=== PATIENT | female | born 1945 | race Caucasian/White ===

== ENCOUNTER 2018-06-27 12:37 | Emergency (ER) | payer MEDICARE, OTHER, SELFPAY ==
[2018-06-27 12:42] VITALS: BP 130/66; PULSE 88; RESP 18; TEMP 37.8; O2SAT 94
--- NOTE | 2018-06-27 12:55 | DI.RAD_ITS ---
SYMPTOM/DIAGNOSIS: LT SIDED PAIN AFTER FALL, COPD PA AND LATERAL CHEST, AND LEFT RIBS: Comparison is made with 29 December 2017. Heart size is normal. The lungs are again noted to be hyperinflated. No pneumothorax, infiltrate or effusion seen. There are stable mid thoracic as well as lower thoracic compression fractures. There are slight deformities of the anterior ribs likely indicating old fractures. No definite acute rib fracture is seen. IMPRESSION: No acute abnormality.
--- NOTE | 2018-06-27 12:57 | W.ED.GENAD ---
Discharge Plan Disposition Patient Disposition: HOME Condition: Improving Discharge Details Chief Complaint: Chest/Rib Clinical Impression: Contusion of rib Primary Care Provider: Lena Velez V ED Provider: Sukh Agustin Home Meds and New Rx's Prescriptions: Continue mirtazapine [Remeron] 15 MG tablet 30 mg PO HS RF: 0 trazodone 50 MG tablet 100 mg PO .QHS RF: 0 melatonin 3 MG tablet 3 mg PO DAILY RF: 0 aspirin [[place] Aspirin] 81 MG tablet,delayed release (DR/EC) 1 tab PO DAILY RF: 0 polyethylene glycol 3350 17 GM powder in packet 17 gm PO DAILY PRN PRN (Reason: Constipation) RF: 0 Discharge Instructions Instructions: Rib Contusion (ED) Additional Instructions: Home to rest today. May apply ice to areas of discomfort if needed. Continue your regular medications. Return if you develop shortness of breath, persistent rib pain, or any other acute concerns Medical Decision Making 72-year-old female presents from home with her caregiver. She stumbled last night and struck a [place] tree with the left side of her body. She did not strike her head or have a loss of consciousness. In the interim she developed a minor bruise to the left hip and intermittent episodes of aching left chest pain that is worse with cough. She has a chronic cough. No fever. No air hunger. No hypoxia. The pain is episodic and worse with chronic cough. Differential diagnosis includes contusion versus underlying fracture. Patient referred for x-ray which does not reveal underlying fracture. She certainly may have contusion Will treat conservatively. SHe has minimal to no persistent pain. She has a good home environment/caregiver. Return and followup precautions discussed with caregiver prior to discharge. HPI General Mode of arrival: ambulatory. Date/Time Provider Initiated Documentation: 06/27/18 12:41. Limitations to Documentation: no limitations. Information obtained by: patient and family (The patient's caregiver with whom she lives). History of Present Illness 72 year old F presents to the emergency department with the chief complaint of Fall last night and left-sided pain with coughing, described as moderate, Quality is described as aching, and is localized to the chest and left. Patient reports no radiation. Patient started experiencing this hour(s) and it has been intermittent and now resolved. No relieving factors improve symptom(s), No exacerbating factors reported . Patient notes no other symptoms.. Related Data Home Medications Medication Instructions Recorded Confirmed mirtazapine [Remeron] 30 mg PO HS 03/20/14 06/27/18 aspirin [[place] Aspirin] 1 tab PO DAILY 08/30/17 06/27/18 melatonin 3 mg PO DAILY 08/30/17 06/27/18 trazodone 100 mg PO .QHS 08/30/17 06/27/18 polyethylene glycol 3350 17 gm PO DAILY PRN PRN packet 12/31/17 06/27/18 Previous Rx's Medication Instructions Recorded polyethylene glycol 3350 17 gm PO DAILY PRN PRN packet 12/31/17 Allergies Allergy/AdvReac Type Severity Reaction Status Date / Time ampicillin Allergy Mild Hives Unverified 06/27/18 13:09 General Stated Complaint: Chest/Rib HENRY: 4 Review of Systems Review of Systems For systems reviewed and otherwise negative PFSH Social History Smoking/Tobacco Use Status: Current every day Social History Smoking/Tobacco Use Status: Former Tobacco Use Exam Narrative Exam Narrative: GEN: awake, alert, oriented 3. Pleasant, well groomed, interactive. HEAD: Normocephalic, atraumatic ENT: Mucous membranes moist, oropharynx unremarkable, External ear exam unremarkable EYES: PERRL, EOMI NECK: Full ROM, no KO, no menigismus CHEST/RESP: Left lateral chest wall, mid axillary line, tender to palpation, clear to auscultation bilateral, no wheeze/rhonchi/rales CARDIOVASCULAR: RRR, no murmur, rub james. 2+ Rad pulse bilateral ABDOMEN: Soft, nontender, no mass. +Bowel sounds EXT: Full ROM, no edema, no rash. Ecchymosis left anterior superior iliac spine. No pain with movement of the lower extremity/hip Neuro: Grossly normal neurologic exam, conversant, interactive. Psych: Speech fluent, thoughts congruent, affect normal Course Vital Signs Temperature 37.8 C H 06/27/18 12:42 Pulse 88 06/27/18 12:42 Respiratory Rate 18 06/27/18 12:42 Blood Pressure 130/66 06/27/18 12:42 Pulse Oximetry 94 L 06/27/18 12:42 Temperature 37.8 C H 06/27/18 12:42 Temperature Source Temporal Artery Scan 06/27/18 12:42 Pulse 88 06/27/18 12:42 Respiratory Rate 18 06/27/18 12:42 Blood Pressure 130/66 06/27/18 12:42 Blood Pressure Position Sitting 06/27/18 12:42 Pulse Oximetry 94 L 06/27/18 12:42 Oxygen Delivery Method Room Air 06/27/18 12:42 Oxygen Flow Rate 0 06/27/18 12:42 Pain Level 0 06/27/18 12:42
--- NOTE | 2018-06-27 14:24 | DI.VRAD_ITS ---
EXAM: XR Left Ribs, 2 Views EXAM DATE/TIME: 06/27/2018 12:56 PM CLINICAL HISTORY: 72 years old, female; Pain; Chest wall pain; Left; Patient HX: L sided pain after fall TECHNIQUE: XR Left ribs 2 views. COMPARISON: CR CHEST 2 VIEWS PA,LAT 12/29/2017 10:14 AM FINDINGS: Bones/joints: Normal. Soft tissues: Normal. IMPRESSION: No acute findings. EXAM: XR Chest, 2 Views EXAM DATE/TIME: 06/27/2018 12:56 PM CLINICAL HISTORY: 72 years old, female; Pain; Chest wall pain; Left; Patient HX: L sided pain after fall TECHNIQUE: XR of the chest, 2 views. COMPARISON: CR CHEST 2 VIEWS PA,LAT 12/29/2017 10:14 AM FINDINGS: Lungs: The lungs appear slightly hyperaerated and hyperlucent. Pleural space: Unremarkable. No pleural effusion. No pneumothorax. Heart/Mediastinum: Unremarkable. No cardiomegaly. Bones/joints: There are mild mid and lower thoracic compression deformities, unchanged from prior exam. Other findings: Bone mineralization appears decreased. IMPRESSION: No definite acute posttraumatic abnormality. COMMENT: Preliminary interpretation is based on receipt of 5 image(s). A final report will be issued subsequently. Dictated and Authenticated by: Dasia Carlisle MD. Ordering:DAVON FUNEZ MD
== END 2018-06-27 14:31 | disposition home or self-care (01) ==
LOC: ER 14:37
PROVIDERS: Emergency Provider Emergency Medicine; PCP Family Medicine
DX: S20.222A Contusion of left back wall of thorax, initial encounter (principal); W01.198A Fall on same level from slipping, tripping and stumbling with subsequent striking against other object, initial encounter
CPT/HCPCS: 99284; 71046; 71100

== ENCOUNTER 2018-11-27 16:01 | Emergency (ER) | payer MEDICARE, MEDICAID, SELFPAY ==
[2018-11-27 16:06] VITALS: BP 146/85; PULSE 100; RESP 14; TEMP 36.8; O2SAT 95
--- NOTE | 2018-11-27 16:09 | W.ED.GENAD ---
Discharge Plan Disposition Patient Disposition: HOME Condition: Fair Discharge Details Chief Complaint: Cellulitis Clinical Impression: Cellulitis, Maceration of skin Primary Care Provider: Lena Velez V ED Provider: Candi Rick Home Meds and New Rx's Prescriptions: New clindamycin HCl 150 mg capsule 450 mg PO TID Qty: 63 RF: 0 Continued mirtazapine [Remeron] 15 MG tablet 30 mg PO HS RF: 0 multivitamin Tablet 1 tab PO DAILY RF: 0 risperidone [Risperdal] 0.25 mg Tablet 0.25 mg PO BID RF: 0 trazodone 50 MG tablet 100 mg PO .QHS RF: 0 melatonin 3 MG tablet 3 mg PO DAILY RF: 0 aspirin [[place]ates Aspirin] 81 MG tablet,delayed release (DR/EC) 1 tab PO DAILY RF: 0 polyethylene glycol 3350 17 GM powder in packet 17 gm PO DAILY PRN PRN (Reason: Constipation) RF: 0 Discharge Instructions Instructions: Cellulitis (ED) Additional Instructions: Encourage hydration. Try to air right foot as much as possible, dry well after showers. Take Clindamycin as prescribed. Even if symptoms improve, please take entire course. When in shoes, have wound covered to protect from rubbing, take dressing off when shoes are off. Please contact pediatrist Thursday to schedule follow up appointment. Keep upcoming appointment with PCP. If Rosita develops fevers/chills, increased pain, spreading of the redness or other new/worsening symptoms please seek care urgently once again. Referrals: Lena Velez MD [Primary Care Provider] - Duane Butterfield DPM [[facility] STAFF PHYSICIAN] - Discharge Data Discharge Date/Time-TO BE ENTERED AT DEPARTURE: 11/27/18 16:39 Medical Decision Making Patient 73 year old female brought in by home care provider who has lived with her for the past year, presenting for eval of right foot. Noted area of erythema on dorsum of the foot. Area of warmth and redness dorsal distal foot. Open area between 4&5 digits that appears to be from macerated tissue is where erythema seems to be stemming from. She has a different isolated area of macerated tissue that appears to have opened centrally with no signs of infection. I advised that she will need to allow this to dry. This is difficult with the patients dementia and unwillingness to go without shoes. The care provider and myself discussed methods that may help with this. Encouraged frequent sock changes. Nursing staff applied dressing to help prevent rubbing. Will treat cellulitis with antibiotics. Patient allergic to ampicillin, unclear reactions, for this reason will give Clindamycin. Advised f/u with wire photo operator, have asked career resource specialist to help with this. Discussed that with the appearance of her nails, she should be seen regularly. Area of erythema was marked. Advised probiotic while on Clindamycin. Encouraged hdyration. Given strict return precautions. She already has appointment with her primary care this week. All questions and concerns were addressed, she is in agreement with this plan. HPI General Mode of arrival: ambulatory. Date/Time Provider Initiated Documentation: 11/27/18 16:08. Limitations to Documentation: altered mental status (patient has dementia). Information obtained by: patient, family (brought in by school child care attendant) and RN notes reviewed. HPI Narrative: Patient is a 73 year old female with history of dementia presenting today, brought in by her school child care attendant, for evaluation of her right foot. in home caregiver reports that patient refuses to remove her shoes, even for sleeping, a symptom she has had >1 year associated with her dementia. States that her foot looked normal 2 days ago at the time of her last shower. However, noted erythema, warmth and break down of skin today. Concerned for infection. No fevers/chills. No known trauma. Related Data Home Medications Medication Instructions Recorded Confirmed mirtazapine [Remeron] 30 mg PO HS 03/20/14 11/27/18 aspirin [[place] Aspirin] 1 tab PO DAILY 08/30/17 11/27/18 melatonin 3 mg PO DAILY 08/30/17 11/27/18 trazodone 100 mg PO .QHS 08/30/17 11/27/18 polyethylene glycol 3350 17 gm PO DAILY PRN PRN packet 12/31/17 11/27/18 clindamycin HCl 450 mg PO TID #63 cap 11/27/18 multivitamin 1 tab PO DAILY 11/27/18 11/27/18 risperidone [Risperdal] 0.25 mg PO BID 11/27/18 11/27/18 Previous Rx's Medication Instructions Recorded polyethylene glycol 3350 17 gm PO DAILY PRN PRN packet 12/31/17 clindamycin HCl 450 mg PO TID #63 cap 11/27/18 Allergies Allergy/AdvReac Type Severity Reaction Status Date / Time ampicillin Allergy Mild Hives Unverified 11/27/18 16:06 General HENRY: 4 Review of Systems Constitutional Reports as per HPI, Denies chills, Denies fever(s), Denies headache(s) and Denies weakness ENT Denies headache(s) Cardiovascular Reports as per HPI Respiratory Reports as per HPI and Denies cough Musculoskeletal Reports as per HPI and Denies tingling Integumentary/Breasts Reports as per HPI, Denies skin pain, Reports sores and Reports wounds Neurologic Reports as per HPI, Denies headache(s), Denies tingling, Denies paresthesias and Denies weakness [facility] Social History Smoking/Tobacco Use Status: Former Tobacco Use Alcohol Intake: former Drug use: Never Substance use type: does not use Do you feel safe in your relationship?: Yes Exam Const General: cooperative, healthy appearing, comfortable, no acute distress, well developed and well groomed Nutritional Appearance: average body habitus and well nourished Orientation: alert and awake Resp Effort & Inspection: normal respiratory effort, able to speak in complete sentences and no respiratory distress Auscultation: clear to auscultation bilaterally Cardio Rate: regular rate Rhythm: regular rhythm Heart Sounds: S1 normal and S2 normal Skin General skin exam: no crusts, skin not dry, erythema (dorsal right foot), no fluctuance and other (macerated area between digits, on sole of foot) Neuro General: alert and awake Cognition: normal cognition Speech: speech normal Gait: normal gait Motor: muscle tone normal throughout Sensory Exam: no sensory deficits noted Extrem Right lower extremity: full ROM, normal capillary refill, no joint enlargement, ankle Details: normal to inspection and foot Details: normal capillary refill, toes with normal ROM, vascular exam Details: dorsalis pedis pulse present, posterior tibial pulse present and normal capillary refill, motor-sensory exam Details: light-touch normal and other (macerated tissue); no tenderness, no crepitus and no puncture wound; abnormal to inspection (skin changes as above), no cyanosis and no edema Ankle/foot/toe images: 1. macerated tissue with opening 2. area of erythema, stemming from open area from macerated tissue between 4&5 digits Psych Appearance: grossly normal and well kempt Mental Status: mental status grossly normal Speech and Movement: speech and movement normal
--- NOTE | 2018-11-27 16:29 | ED.GENADUL_ITS ---
Discharge Plan Disposition Patient Disposition: HOME Condition: Fair Discharge Details Chief Complaint: Cellulitis Clinical Impression: Cellulitis, Maceration of skin Primary Care Provider: Lena Velez V ED Provider: Candi Rick Home Meds and New Rx's Prescriptions: New clindamycin HCl 150 mg capsule 450 mg PO TID Qty: 63 RF: 0 Continued mirtazapine [Remeron] 15 MG tablet 30 mg PO HS RF: 0 multivitamin Tablet 1 tab PO DAILY RF: 0 risperidone [Risperdal] 0.25 mg Tablet 0.25 mg PO BID RF: 0 trazodone 50 MG tablet 100 mg PO .QHS RF: 0 melatonin 3 MG tablet 3 mg PO DAILY RF: 0 aspirin [[place] Aspirin] 81 MG tablet,delayed release (DR/EC) 1 tab PO DAILY RF: 0 polyethylene glycol 3350 17 GM powder in packet 17 gm PO DAILY PRN PRN (Reason: Constipation) RF: 0 Discharge Instructions Instructions: Cellulitis (ED) Additional Instructions: Encourage hydration. Try to air right foot as much as possible, dry well after showers. Take Clindamycin as prescribed. Even if symptoms improve, please take entire course. When in shoes, have wound covered to protect from rubbing, take dressing off when shoes are off. Please contact pediatrist Thursday to schedule follow up appointment. Keep upcoming appointment with PCP. If Rosita develops fevers/chills, increased pain, spreading of the redness or other new/worsening symptoms please seek care urgently once again. Referrals: Lena Velez MD [Primary Care Provider] - Duane Butterfield DPM [[facility] STAFF PHYSICIAN] - Discharge Data Discharge Date/Time-TO BE ENTERED AT DEPARTURE: 11/27/18 16:39 Medical Decision Making Patient 73 year old female brought in by home care provider who has lived with her for the past year, presenting for eval of right foot. Noted area of erythema on dorsum of the foot. Area of warmth and redness dorsal distal foot. Open area between 4&5 digits that appears to be from macerated tissue is where erythema seems to be stemming from. She has a different isolated area of macerated tissue that appears to have opened centrally with no signs of infection. I advised that she will need to allow this to dry. This is difficult with the patients dementia and unwillingness to go without shoes. The care provider and myself discussed methods that may help with this. Encouraged frequent sock changes. Nursing staff applied dressing to help prevent rubbing. Will treat cellulitis with antibiotics. Patient allergic to ampicillin, unclear reactions, for this reason will give Clindamycin. Advised f/u with master control engineer, have asked respiratory care instructor to help with this. Discussed that with the appearance of her nails, she should be seen regularly. Area of erythema was marked. Advised probiotic while on C lindamycin. Encouraged hdyration. Given strict return precautions. She already has appointment with her primary care this week. All questions and concerns were addressed, she is in agreement with this plan. HPI General Mode of arrival: ambulatory . Date/Time Provider Initiated Documentation: 11/27/18 16:08 . Limitations to Documentation: altered mental status (patient has dementia) . Information obtained by: patient, family (brought in by physician primary care sports medicine) and RN notes reviewed . HPI Narrative: Patient is a 73 year old female with history of dementia presenting today, brought in by her physician primary care sports medicine, for evaluation of her right foot. morning caregiver reports that patient refuses to remove her shoes, even for sleeping, a symptom she has had >1 year associated with her dementia. States that her foot looked normal 2 days ago at the time of her last shower. However, noted erythema, warmth and break down of skin today. Concerned for infection. No fevers/chills. No known trauma. Related Data Home Medications Medication Instructions Recorded Confirmed mirtazapine [Remeron] 30 mg PO HS 03/20/14 11/27/18 aspirin [[place] Aspirin] 1 tab PO DAILY 08/30/17 11/27/18 melatonin 3 mg PO DAILY 08/30/17 11/27/18 trazodone 100 mg PO .QHS 08/30/17 11/27/18 polyethylene glycol 3350 17 gm PO DAILY PRN PRN packet 12/31/17 11/27/18 clindamycin HCl 450 mg PO TID #63 cap 11/27/18 multivitamin 1 tab PO DAILY 11/27/18 11/27/18 risperidone [Risperdal] 0.25 mg PO BID 11/27/18 11/27/18 Previous Rx's Medication Instructions Recorded polyethylene glycol 3350 17 gm PO DAILY PRN PRN packet 12/31/17 clindamycin HCl 450 mg PO TID #63 cap 11/27/18 Allergies Allergy/AdvReac Type Severity Reaction Status Date / Time ampicillin Allergy Mild Hives Unverified 11/27/18 16:06 General HENRY: 4 Review of Systems Constitutional Reports as per HPI, Denies chills, Denies fever(s), Denies headache(s) and Denies weakness ENT Denies headache(s) Cardiovascular Reports as per HPI Respiratory Reports as per HPI and Denies cough Musculoskeletal Reports as per HPI and Denies tingling Integumentary/Breasts Reports as per HPI, Denies skin pain, Reports sores and Reports wounds Neurologic Reports as per HPI, Denies headache(s), Denies tingling, Denies paresthesias and Denies weakness [facility] Social History Smoking/Tobacco Use Status: Former Tobacco Use Alcohol Intake: former Drug use: Never Substance use type: does not use Do you feel safe in your relationship?: Yes Exam Const General: cooperative, healthy appearing, comfortable, no acute distress, well developed and well groomed Nutritional Appearance: average body habitus and well nourished Orientation: alert and awake Resp Effort & Inspection: normal respiratory effort, able to speak in complete sentences and no respiratory distress Auscultation: clear to auscultation bilaterally Cardio Rate: regular rate Rhythm: regular rhythm Heart Sounds: S1 normal and S2 normal Skin General skin exam: no crusts, skin not dry, erythema (dorsal right foot), no fluctuance and other (macerated area between digits, on sole of foot) Neuro General: alert and awake Cognition: normal cognition Speech: speech normal Gait: normal gait Motor: muscle tone normal throughout Sensory Exam: no sensory deficits noted Extrem Right lower extremity: full ROM, normal capillary refill, no joint enlargement, ankle Details: normal to inspection and foot Details: normal capillary refill, toes with normal ROM, vascular exam Details: dorsalis pedis pulse present, posterior tibial pulse present and normal capillary refill, motor-sensory exam Details: light-touch normal and other (macerated tissue); no tenderness, no c repitus and no puncture wound; abnormal to inspection (skin changes as above), no cyanosis and no edema Ankle/foot/toe images: 1. macerated tissue with opening 2. area of erythema, stemming from open area from macerated tissue between 4&5 digits Psych Appearance: grossly normal and well kempt Mental Status: mental status grossly normal Speech and Movement: speech and movement normal
--- NOTE | 2018-11-29 08:59 | PDOC.ERCMPRO ---
Care Management Progress Note 11/29-DORINA Christopher requested assistance with a podiatry f/u in 2 weeks for macerated tissue, cellulitis sole of foot. Referral faxed to Dr. Butterfield's office this am.
== END 2018-11-27 16:39 | disposition home or self-care (01) ==
LOC: ER 16:40
PROVIDERS: Emergency Provider Physician Assistant; PCP Family Medicine
DX: L03.115 Cellulitis of right lower limb (principal); R23.8 Other skin changes
CPT/HCPCS: 99283

== ENCOUNTER 2019-06-21 15:18 | Outpatient (REF) | payer MEDICARE, MEDICAID, SELFPAY | END 2019-06-21 15:38 | LOC: LBN 15:18 | PROVIDERS: PCP Family Medicine; Visit Provider Podiatrist | DX: L97.519 Non-pressure chronic ulcer of other part of right foot with unspecified severity (principal); M86.671 Other chronic osteomyelitis, right ankle and foot | CPT/HCPCS: 87077; 87070; 87186; 87205 ==

== ENCOUNTER 2019-08-31 09:06 | Emergency (ER) | payer MEDICARE, MEDICAID, SELFPAY ==
[2019-08-31 09:14] VITALS: BP 103/56; PULSE 123; RESP 16; TEMP 36.6; O2SAT 96
--- NOTE | 2019-08-31 09:22 | W.ED.GENAD ---
Discharge Plan Disposition Patient Disposition: HOME Condition: Stable Discharge Details Chief Complaint: Orthopedic Clinical Impression: Closed fracture distal radius and ulna Primary Care Provider: Lena Velez V ED Provider: Kimmy Lisa Home Meds and New Rx's Prescriptions: New acetaminophen-codeine [Tylenol-Codeine #3] 300-30 mg tablet 1 tab PO BID PRN (Reason: pain) Qty: 6 RF: 0 Continued guaifenesin [Mucinex] 600 mg tablet extended release 12hr 600 mg PO Q12H PRN (Reason: cough, mucous) RF: 0 paroxetine HCl 20 mg tablet 10 mg PO DAILY RF: 0 trazodone 100 mg tablet 100 mg PO QHS Qty: 90 RF: 0 mirtazapine [Remeron] 15 MG tablet 30 mg PO HS RF: 0 risperidone [Risperdal] 0.25 mg tablet 0.5 mg PO BID RF: 0 melatonin 3 MG tablet 3 mg PO DAILY RF: 0 Discharge Instructions Instructions: Wrist Fracture in Adults (ED), Splint Care (ED) Additional Instructions: Follow-up with orthopedic clinic. Phone number is [phone] Dr. Kim is aware of you and wants to see you in clinic early next week. If fingers become cold blue numb or tingly loosen the Trevon wrap but do not take off the splint until seen by Ortho. For any excruciating pain or continued problems with circulation return to the ED as soon as possible. Take medications as directed. Keep extremity elevated you may apply ice pack to the exterior of the splint To reduce swelling. Medications are best taken with food. They may make her sleepy and dizzy so be careful with walking. Referrals: Lena Velez MD [Primary Care Provider] - Medical Decision Making 74-year-old female presents after trip and fall on outstretched arms with left wrist deformity and tenderness. Tylenol with codeine ordered an x-ray. Ice pack in place. FINDINGS: There is a comminuted intra-articular fracture of the distal radius which shows impaction and dorsal angulation as well as posterior displacement. There is also comminuted fracture of the ulnar styloid. The carpal bones show mild degenerative changes but no evidence of fracture. IMPRESSION: Comminuted distal radial and ulnar fractures. Ordered By: Kimmy Lisa CC: Dictated By: Ana Barrientos M.D. 08/31/19953 <Electronically signed by Ana Barrientos M.D. in OV> 08/31/19953 1014: Caregiver is concerned that patient will not tolerate Ortho splint due to dementia and will pick at it and try to take it off. She requests cast placement. Page placed to Ortho on-call Dr. Kim. 1018: Spoke with Dr. Kim with ortho, he recommends reduction, Ortho glass, and Koban. He will see her in office next week. Will do hematoma block. 1050: Approximately 8 mL of 1% lidocaine injected dorsally for hematoma block. Needle introduced aspirated negative for blood and injected lidocaine. Patient tolerated well. Manual manipulation performed with traction and reduction of left wrist fracture. Patient placed in a reverse sugar tong splint with Trevon wraps. Circulation sensation and movement intact post splint application. Post reduction x-ray ordered. 1106: Spoke with Ortho on-call Dr. Kim who viewed post reduction x-ray he says it is acceptable radius and ulna are somewhat better aligned. He states he will see her in the office next week. Patient placed in sling command wrapped around Ortho-Glass splint. Instructed caregiver on home care to loosen Trevon wraps if any circulation problems or cold blue numb or tingling fingers. Instructed to return for any severe pain not relieved by medications or any concerns or if the splint gets wet. Instructed to follow-up with Ortho clinic early next week with Dr. Kim, verbalized understanding. HPI General Mode of arrival: ambulatory. Date/Time Provider Initiated Documentation: 08/31/19 09:19. Limitations to Documentation: altered mental status (Hx of dementia). Information obtained by: family (caregiver Rosalva). HPI Narrative: 74-year-old female presents with caregiver who reports a trip and fall at around 8 or 830 this morning. She tripped over a nightstand landing on outstretched arms. Here with left wrist pain and deformity. Swelling noted to the dorsal wrist. Radial pulses intact cap refill less than 3 seconds. Patient has a history of dementia. Related Data Home Medications Medication Instructions Recorded Confirmed mirtazapine [Remeron] 30 mg PO HS 03/20/14 08/31/19 melatonin 3 mg PO DAILY 08/30/17 08/31/19 guaifenesin 600 mg tablet, 600 mg PO Q12H PRN 03/22/19 08/31/19 extended release 12 hr paroxetine HCl 20 mg tablet 10 mg PO DAILY 03/22/19 08/31/19 risperidone 0.25 mg tablet 0.5 mg PO BID tab 03/22/19 08/31/19 trazodone 100 mg tablet 100 mg PO QHS #90 tab 06/28/19 08/31/19 acetaminophen-codeine 1 tab PO BID PRN #6 tab 08/31/19 [Tylenol-Codeine #3] Previous Rx's Medication Instructions Recorded trazodone 100 mg tablet 100 mg PO QHS #90 tab 06/28/19 acetaminophen-codeine 1 tab PO BID PRN #6 tab 08/31/19 [Tylenol-Codeine #3] Allergies Allergy/AdvReac Type Severity Reaction Status Date / Time ampicillin Allergy Mild Hives Unverified 08/31/19 09:17 clindamycin Allergy Unverified 08/31/19 09:17 General Stated Complaint: Orthopedic HENYR: 4 Review of Systems Narrative: Constitutional: Negative for weight loss, alert and oriented, well groomed, normal body habitus, appears comfortable. HEENT: Denies headaches, blurry vision, nasal discharge, sore throat, trouble swallowing. Chest: Denies chest pain, palpitations, irregular rhythm, hypertension. Respiratory: Denies Shortness of breath, cough, hemoptysis. GI: Denies abdominal pain, nausea, vomiting, diarrhea, constipation. : Denies dysuria, hematuria, flank pain, rectal bleeding. Neuro: Denies dizziness, blurry vision, weakness, syncope, headache or facial numbness. Hematologic: Denies easy bruising, intolerance to heat or cold, hair loss. Extremities: Left upper extremity wrist swollen, positive deformity, increased tenderness. 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) Anxiety (Chronic) Ataxia following cerebral infarction (Acute) Cellulitis (Acute) Community acquired pneumonia (Acute) COPD (chronic obstructive pulmonary disease) (Chronic) Dementia (Chronic) Depression (Chronic) Detached retina (Acute) DNI (do not intubate) (Acute) DNR (do not resuscitate) (Acute) Dysuria (Acute) Echolalia (Acute) Elevated cancer antigen 125 (CA-125) (Acute) Encounter for hospice care discussion (Acute) Fecal incontinence (Acute) History of tobacco use (Acute) Hyperlipidemia (Acute) Hypertension (Chronic) Incontinence (Acute) Ischemic stroke (Acute) Onychomycosis (Acute) Osteoporosis (Chronic) Peripheral neuropathy (Acute) Unintentional weight loss (Acute) Urinary incontinence (Acute) Vascular dementia (Acute) Surgical History History of total abdominal hysterectomy (Acute) Family History Daughter No problems noted. Daughter No problems noted. Grandson No problems noted. Grandson No problems noted. Grandson No problems noted. Social History Smoking/Tobacco Use Status: Former Tobacco Use Tobacco: How many years used: 54 Second Hand Exposure: No Alcohol Intake: former Drug use: Never Substance use type: does not use Caregiver/Support person: Yes Household members: other Details: lives with director of logisticsRosalva Housing: house Number of Children: 2 Communication Needs: Hard of Hearing Education Level: college Do you need help understanding health information?: Always current occupation: retired RN from [employer] Sexually active: No What is your relationship status?: How often do you talk on the phone with friends or family?: never How often do you get together with friends or relatives?: never Panel score (0-1 are the most socially isolated patients): 0 What type of physical activity do you participate in: none and sedentary lifestyle Special camron needs: No Agree to transfusion: No Seatbelt use: always Drive intox or ride w/intox route delivery service driver: No Water heater temp set <120 deg: Yes Working smoke detector in home: Yes Fire extinguisher in home: Yes Do you feel safe at home: Yes Do you feel safe in your relationship?: Yes Additional Social history: Lives with Rosalva in [facility]. Was in different one previously and didn't do well. Daughter Annette is her DPOA and guardian. Rosita's dementia is alcohol related. Drank heavily for many years. Also vascular. Now on [facility]. Money ran out. Goes to [employer] 4 days per week. Loves where she lives now. Health has improved. Exam Narrative Exam Narrative: Constitutional: Awake, confused at normal baseline per caregiver appears stated age. Normal body habitus. Head: Normocephalic, no trauma. Eyes: Pupils PERRLA, Red reflex noted, EOM's intact. Eyelids symmetrical withour lesions, discharge, or swelling. ENT: Bilateral TM's WNL, External ear normal to inspection, no mastoid TTP, swelling, or erythema, Nasal turbinates WNL, no nasal discharge. Normal dentition, Posterior pharynx WNL, no exudate. Chest: RRR, Normal S1, S2, distal pulses intact. Resp: Lungs clear to auscultation bilaterally, no wheezes, rales, or rhonchi. Musculoskeletal: Normal gait, 5/5 strength to all four extremities. Left wrist has dorsal swelling, contusion and deformity. Radial pulses intact. Skin: No suspicious rashes or lesions. Capillary refill ?2 sec. Neurologic: Cranial nerves II-XII intact. Alert and oriented x 3. DTR's intact. Hematologic/Lymphatic: No ecchymosis, no lymphadenopathy. Course Vital Signs Vital signs: Vital Signs Temperature 36.6 C 08/31/19 09:14 Pulse 123 H 08/31/19 09:14 Respiratory Rate 16 08/31/19 09:14 Blood Pressure 103/56 L 08/31/19 09:14 Pulse Oximetry 96 08/31/19 09:14 Temperature 36.6 C 08/31/19 09:14 Temperature Source Skin 08/31/19 09:14 Pulse 123 H 08/31/19 09:14 Respiratory Rate 16 08/31/19 09:14 Respiratory Effort Non-Labored 08/31/19 09:14 Blood Pressure 103/56 L 08/31/19 09:14 Blood Pressure Position Sitting 08/31/19 09:14 Pulse Oximetry 96 08/31/19 09:14 Oxygen Delivery Method Room Air 08/31/19 09:14 Oxygen Flow Rate 0 08/31/19 09:14 Pain Level 8 08/31/19 09:14 Procedures Orthopedic Fracture Reduction Fracture #1: Time Out Performed: Yes Side: left Fracture Reduction Location: radius and ulna Analgesia: hematoma block Technique: direct manipulation Post-reduction neuro exam: intact Post-reduction vascular exam: intact Splint Applied: Yes Patient Tolerated Procedure: well Orthopedic Splinting/Casting Injury #1: Side: left Upper Extremity Injury Location: wrist Upper Extremity Immobilizer: sling/shoulder immobilizer and sugartong splint (Reverse sugar tong)
--- NOTE | 2019-08-31 09:42 | DI.RAD_ITS ---
EXAM: XR WRIST LT COMPLETE INDICATION: Fall, deformity. COMPARISON: No exams were available for comparison TECHNIQUE: 2D digital imaging was performed. FINDINGS: There is a comminuted intra-articular fracture of the distal radius which shows impaction and dorsal angulation as well as posterior displacement. There is also comminuted fracture of the ulnar styloid . The carpal bones show mild degenerative changes but no evidence of fracture. IMPRESSION: Comminuted distal radial and ulnar fractures.
--- NOTE | 2019-08-31 10:56 | DI.RAD_ITS ---
EXAM: XR WRIST LT LIMITED INDICATION: Post reduction. COMPARISON: XR WRIST LT COMPLETE from 08/31/2019 TECHNIQUE: 2D digital imaging was performed. FINDINGS: A cast is in place. There has been improvement in the alignment of the distal radial fracture. The u lnar styloid fracture is unchanged.
== END 2019-08-31 11:27 | disposition home or self-care (01) ==
PROVIDERS: Emergency Provider Registered Nurse Emergency; PCP Family Medicine
DX: S52.572A Other intraarticular fracture of lower end of left radius, initial encounter for closed fracture (principal); S52.612A Displaced fracture of left ulna styloid process, initial encounter for closed fracture; W22.03XA Walked into furniture, initial encounter; F10.27 Alcohol dependence with alcohol-induced persisting dementia; I10 Essential (primary) hypertension; J44.9 Chronic obstructive pulmonary disease, unspecified; Z87.891 Personal history of nicotine dependence
CPT/HCPCS: 99283; 25605; 73100; 73110; 99282; L3650

== ENCOUNTER 2019-09-07 15:00 | Outpatient (CLI) | payer MEDICARE, MEDICAID, SELFPAY ==
--- NOTE | 2019-09-07 13:00 | DI.RAD_ITS ---
EXAM: XR WRIST LT LIMITED CLINICAL HISTORY: FOLLOW UP. TECHNIQUE: 2D digital imaging was performed. COMPARISON: XR WRIST LT LIMITED from 08/31/2019 XR WRIST LT COMPLETE from 08/31/2019 FINDINGS: BONES: There has been no change in alignment of the fractures involving the distal radius and ulna. There is stable displacement of the distal radial fracture. Patient's wrist is in a cast. JOINTS: The carpal bones are normally aligned. SOFT TISSUE: Normal. IMPRESSION: Stable distal radial and ulnar fractures.
== END 2019-09-07 15:20 ==
PROVIDERS: PCP Family Medicine; Referring Provider Family Medicine; Visit Provider Student in an Organized Health Care Education/Training Program
DX: S52.502A Unspecified fracture of the lower end of left radius, initial encounter for closed fracture (principal); S52.602A Unspecified fracture of lower end of left ulna, initial encounter for closed fracture; W01.0XXA Fall on same level from slipping, tripping and stumbling without subsequent striking against object, initial encounter
CPT/HCPCS: 99204; 99215; 73100

== ENCOUNTER 2019-10-12 10:55 | Outpatient (CLI) | payer MEDICARE, MEDICAID, SELFPAY ==
--- NOTE | 2019-10-12 10:50 | DI.RAD_ITS ---
EXAM: XR WRIST LT LIMITED CLINICAL HISTORY: follow up. TECHNIQUE: 2D digital imaging was performed. COMPARISON: XR WRIST LT LIMITED from 09/07/2019 FINDINGS: BONES: There does not appear to be any significant change in alignment of the distal radial and ulnar fractures. There is increased callus formation about the fracture consistent with interval healing. There is persistent dorsal angulation of the distal radial fracture. No bony destructive lesion is seen. JOINTS: The carpal bones are normally aligned. Mild degenerative changes are seen at the 1st carpome tacarpal joint. SOFT TISSUE: There is soft tissue swelling. The cast has been removed. IMPRESSION: No change in alignment of the distal left radial and ulnar fractures. There has been interval healin g with callus formation present. DATA REPOSITORY: RADIATION DOSE DELIVERED:
== END 2019-10-12 11:15 ==
PROVIDERS: PCP Family Medicine; Referring Provider Family Medicine; Visit Provider Student in an Organized Health Care Education/Training Program
DX: S52.572D Other intraarticular fracture of lower end of left radius, subsequent encounter for closed fracture with routine healing (principal); S52.612D Displaced fracture of left ulna styloid process, subsequent encounter for closed fracture with routine healing; S52.502D Unspecified fracture of the lower end of left radius, subsequent encounter for closed fracture with routine healing; S52.602D Unspecified fracture of lower end of left ulna, subsequent encounter for closed fracture with routine healing; W19.XXXD Unspecified fall, subsequent encounter
CPT/HCPCS: 99213; 73100; L3908